=== PATIENT | female | born 1985 | race Caucasian/White ===

== ENCOUNTER 2017-12-14 12:13 | Outpatient (CLI) | END 2017-12-14 14:25 | disposition home or self-care (01) ==

== ENCOUNTER 2017-12-15 13:02 | Outpatient (CLI) | END 2017-12-15 14:20 | disposition home or self-care (01) ==

== ENCOUNTER 2017-12-19 09:27 | Outpatient (CLI) | END 2017-12-19 14:50 | disposition home or self-care (01) ==

== ENCOUNTER 2017-12-21 15:09 | Outpatient (CLI) | END 2017-12-21 16:10 | disposition home or self-care (01) ==

== ENCOUNTER 2017-12-23 09:09 | Outpatient (CLI) | END 2017-12-23 12:04 | disposition home or self-care (01) ==

== ENCOUNTER 2018-01-31 08:47 | Inpatient (IN) | END 2018-02-03 13:00 | disposition home or self-care (01) | DRG 765 ==

== ENCOUNTER 2018-04-21 11:59 | Emergency (ER) | END 2018-04-21 13:20 | disposition home or self-care (01) ==

== ENCOUNTER 2018-04-22 09:30 | Emergency (ER) | END 2018-04-22 12:44 | disposition home or self-care (01) ==

== ENCOUNTER 2018-07-27 14:16 | Emergency (ER) | END 2018-07-27 15:11 | disposition home or self-care (01) ==

== ENCOUNTER 2018-09-22 12:18 | Emergency (ER) | END 2018-09-22 14:56 | disposition home or self-care (01) ==

== ENCOUNTER 2018-10-28 15:21 | Emergency (ER) | payer OTHER ==
[~2018-10-28] VITALS: Wt 90.0 kg
[~2018-10-28 15:21] MED LIST: CEPH-443 PO; IBUP-1544 PO; LORA-441 PO; MECL12.574 PO; METO10TA92 PO; ONDA8TAB14 PO; PRED20TA PO; PREN-39 PO
[2018-10-28 15:28] VITALS: BP 136/89; PULSE 89; RESP 18
[2018-10-28] MEDS ORDERED: IBUP800T48 PO (17:47)
--- NOTE | 2018-10-28 17:50 | ERD ---
ER Documentation Chief Complaint Chief Complaint CWP X 1 WEEK HPI 32-year-old female no past medical history presents to the emergency room with 1 week of right-sided anterior chest wall pain. She states that she has been leaning over the bathtub and pressing on her chest to give her children a bath. Over the timeframe she has had dull pain that is reproducible and worse with movement of her arms and chest wall. No shortness of breath no pleuritic pain no exertional symptoms. Patient was concerned and wanted to be evaluated. She has not taken any Tylenol or Motrin for the pain. ROS All systems reviewed and are negative except as per history of present illness. Medications Home Meds Active Scripts Ibuprofen* (Motrin*) 800 Mg Tab, 800 MG PO Q6H PRN for PAIN AND OR ELEVATED TEMP, #30 TAB Prov:FLORENCIO IVERSON MD 10/28/18 Prednisone* (Prednisone*) 20 Mg Tab, 40 MG PO DAILY for 4 Days, TAB Prov:OLIVIA FINK MD 09/22/18 Metoclopramide* (Reglan*) 10 Mg Tablet, 10 MG PO BID PRN for NAUSEA AND/OR VOMITING, #14 TAB Prov:DON DORSEY MD 07/27/18 Lorazepam* (Ativan*) 0.5 Mg Tablet, 0.5 MG PO BID PRN for dizziness for 7 Days, #14 TAB Prov:DON DORSEY MD 07/27/18 Meclizine Hcl* (Antivert*) 12.5 Mg Tab, 12.5 MG PO Q6H PRN for DIZZINESS, #20 TAB Prov:DON DORSEY MD 07/27/18 Ondansetron (Ondansetron Odt) 8 Mg Tab.rapdis, 8 MG PO Q6H PRN for NAUSEA AND/OR VOMITING, #6 TAB Prov:OLIVIA FINK MD 04/22/18 Cephalexin* (Keflex*) 500 Mg Capsule, 500 MG PO QID for 5 Days, CAP Prov:OLIVIA FINK MD 04/22/18 Meclizine Hcl* (Antivert*) 12.5 Mg Tab, 12.5 MG PO Q6H PRN for DIZZINESS, #20 TA B Prov:DON DORSEY MD 04/21/18 Ibuprofen* (Ibuprofen*) 800 Mg Tablet, 800 MG PO Q8, #60 TAB 0 Refills Prov:MICHEAL MERRITT MD 02/02/18 Reported Medications Vits W-Ca,Fe,Fa(<1MG) ( Vitamins) 1 Tab Tablet, 1 TAB PO 04/29/15 Allergies Allergies: Coded Allergies: No Known Allergy (Unverified , 04/29/15) PMhx/Soc History of Surgery: Yes (csection) Anesthesia Reaction: No Hx Neurological Disorder: No Hx Respiratory Disorders: No Hx Cardiac Disorders: No Hx Psychiatric Problems: No Hx Miscellaneous Medical Probl: No Hx Alcohol Use: Yes Hx Substance Use: No Hx Tobacco Use: No Smoking Status: Never smoker FmHx Family History: No diabetes Physical Exam Vitals Vital Signs Date Temp Pulse Resp B/P (MAP) Pulse Ox O2 O2 Flow FiO2 Time Delivery Rate 10/28/18 98.1 89 18 136/89 99 15:28 (105) Physical Exam General: Well developed, well nourished, no acute distress Head: Normocephalic, atraumatic. Eyes: EOM intact ENT: Moist mucous membranes Neck: Full ROM Respiratory: No respiratory distress, no wheezing or rhonchi, reproducible right-sided anterior chest wall tenderness near the sternal costal margin Cardiovascular: No murmurs rubs gallops Abdominal: Nondistended : Deferred MSK: No edema, no unilateral swelling, 5/5 strength Neurologic: Alert and oriented, moving all extremities, normal speech, steady gait Skin: No rash Psych: Normal mood Procedures/MDM The patient has very reproducible chest wall pain and a good history of repetitive force to the chest wall very consistent with likely costochondritis. No signs or symptoms concerning for pulmonary embolism, dissection, ACS, pneumothorax. I do not believe the patient requires laboratory testing or chest x-ray imaging. The patient has normal vital signs and very good story and very reproducible exam. The patient meets the PERC RULE out criteria. Thus, less than 2% risk of pulmonary embolism with better alternative diagnosis. No indication for d-dimer or CT pulmonary angiogram at this time. EKG: I reviewed and interpreted a 12-lead EKG. Rhythm: Normal sinus rhythm ST Changes: No contiguous ST segment elevations T waves: No contiguous T wave inversions Impression: [No evidence of acute cardiac ischemia] The patient does not have an identifiable emergent medical condition that warrants inpatient hospitalization at this time. The patient is deemed safe for discharge with outpatient follow-up. We discussed follow up with the patient's primary care doctor within 24 to 48 hours as needed. We also discussed return to the emergency room for worsening symptoms or worsening condition. Outpatient referral: [None required] Discharge Medications: Motrin Departure Diagnosis: Primary Impression: Chest wall pain Condition: Good Patient Instructions: Chest Wall Pain, Costochondritis Referrals: [facility] YOU HAVE RECEIVED A MEDICAL SCREENING EXAM AND THE RESULTS INDICATE THAT YOU DO NOT HAVE A CONDITION THAT REQUIRES URGENT TREATMENT IN THE EMERGENCY DEPARTMENT. FURTHER EVALUATION AND TREATMENT OF YOUR CONDITION CAN WAIT UNTIL YOU ARE SEEN IN YOUR DOCTORS OFFICE WITHIN THE NEXT 1-2 DAYS. IT IS YOUR RESPONSIBILITY TO MAKE AN APPOINTMENT FOR FOLOW-UP CARE. IF YOU HAVE A PRIMARY DOCTOR --you should call your primary doctor and schedule an appointment IF YOU DO NOT HAVE A PRIMARY DOCTOR YOU CAN CALL OUR PHYSICIAN REFERRAL HOTLINE AT IF YOU CAN NOT AFFORD TO SEE A PHYSICIAN YOU CAN CHOSE FROM THE FOLLOWING [facility] [address] [facility]. [facility] [address] [facility]. [facility] [address] [facility] [facility] [address] [facility]. [facility] [address] [facility]. [facility]. [address] [facility]. [facility] YOU HAVE RECEIVED A MEDICAL SCREENING EXAM AND THE RESULTS INDICATE THAT YOU DO NOT HAVE A CONDITION THAT REQUIRES URGENT TREATMENT IN THE EMERGENCY DEPARTMENT. FURTHER EVALUATION AND TREATMENT OF YOUR CONDITION CAN WAIT UNTIL YOU ARE SEEN IN YOUR DOCTORS OFFICE WITHIN THE NEXT 1-2 DAYS. IT IS YOUR RESPONSIBILITY TO MAKE AN APPOINTMENT FOR FOLOW-UP CARE. IF YOU HAVE A PRIMARY DOCTOR --you should call your primary doctor and schedule and appointment IF YOU DO NOT HAVE A PRIMARY DOCTOR YOU CAN CALL OUR PHYSICIAN REFERRAL HOTLINE AT . IF YOU CAN NOT AFFORD TO SEE A PHYSICIAN YOU CAN CHOSE FROM THE FOLLOWING [facility] INSTITUTIONS: [facility] [address] [place] [address] [facility] [address] [place] [address] [facility] [address] [place] [address] Additional Instructions: Call your primary care doctor TOMORROW for an appointment during the next 1 WEEK.Tell the waiter/waitress dining car that you were referred from this facility.See the doctor sooner or return here if your condition worsens before your appointment time. FLORENCIO IVERSON MD Oct 28, 2018 17:50
== END 2018-10-28 17:46 | disposition home or self-care (01) ==
LOC: E/R 15:21
DX: R07.89 Other chest pain (principal)
CPT/HCPCS: 93005

== ENCOUNTER 2019-02-07 20:47 | Emergency (ER) | payer OTHER ==
[~2019-02-07] VITALS: Ht 162.6 cm; Wt 106.0 kg
[~2019-02-07 20:47] MED LIST changes: +IBUP800T48 PO
[2019-02-07 21:10] VITALS: BP 143/87; PULSE 60; Ht 162.6 cm; Wt 106.0 kg
[2019-02-07] MEDS ORDERED: BENZ1LOZ52 MM (22:40)
[2019-02-07] MEDS ORDERED: IBUP-1542 PO (22:40)
--- NOTE | 2019-02-07 22:44 | ERD ---
ER Documentation Chief Complaint Chief Complaint sore throat/painful swallowing since yesterday HPI Patient is a 33-year-old female who presents the ER for concerns of throat pain x1 day. She denies any drooling, trismus or hyperextension of her neck. She states pain is localized to left side of her throat. She denies any fevers or chills. Patient has no cough. Patient has no chest pain, shortness of breath, nausea, vomiting or LOC. ROS All systems reviewed and are negative except as per history of present illness. Medications Home Meds Active Scripts Benzocaine/Menthol* (Cepacol* Sore Throat Lozenges) 1 Each Lozenge, 1 EACH MM q2h PRN for SORE THROAT, #14 [place] Prov:BRONSON GIBBONS PA-C 02/07/19 Ibuprofen* (Motrin*) 600 Mg Tab, 600 MG PO Q6, #30 TAB Prov:BRONSON GIBBONS PA-C 02/07/19 Ibuprofen* (Motrin*) 800 Mg Tab, 800 MG PO Q6H PRN for PAIN AND OR ELEVATED TEMP, #30 TAB Prov:FLORENCIO IVERSON MD 10/28/18 Prednisone* (Prednisone*) 20 Mg Tab, 40 MG PO DAILY for 4 Days, TAB Prov:OLIVIA FINK MD 09/22/18 Metoclopramide* (Reglan*) 10 Mg Tablet, 10 MG PO BID PRN for NAUSEA AND/OR VOMITING, #14 TAB Prov:DON DORSEY MD 07/27/18 Lorazepam* (Ativan*) 0.5 Mg Tablet, 0.5 MG PO BID PRN for dizziness for 7 Days, #14 TAB Prov:DON DORSEY MD 07/27/18 Meclizine Hcl* (Antivert*) 12.5 Mg Tab, 12.5 MG PO Q6H PRN for DIZZINESS, #20 TAB Prov:DON DORSEY MD 07/27/18 Ondansetron (Ondansetron Odt) 8 Mg Tab.rapdis, 8 MG PO Q6H PRN for NAUSEA AND/OR VOMITING, #6 TAB Prov:OLIVIA FINK MD 04/22/18 Cephalexin* (Keflex*) 500 Mg Capsule, 500 MG PO QID for 5 Days, CAP Prov:OLIVIA FINK MD 04/22/18 Meclizine Hcl* (Antivert*) 12.5 Mg Tab, 12.5 MG PO Q6H PRN for DIZZINESS, #20 TAB Prov:DON DORSEY MD 04/21/18 Ibuprofen* (Ibuprofen*) 800 Mg Tablet, 800 MG PO Q8, #60 TAB 0 Refills Prov:MICHEAL MERRITT MD 02/02/18 Reported Medications Vits W-Ca,Fe,Fa(<1MG) ( Vitamins) 1 Tab Tablet, 1 TAB PO 04/29/15 Allergies Allergies: Coded Allergies: No Known Allergy (Unverified , 04/29/15) PMhx/Soc Medical and Surgical Hx: pt denies Medical Hx, pt denies Surgical Hx History of Surgery: Yes (csection) Anesthesia Reaction: No Hx Neurological Disorder: No Hx Respiratory Disorders: No Hx Cardiac Disorders: No Hx Psychiatric Problems: No Hx Miscellaneous Medical Probl: No Hx Alcohol Use: Yes Hx Substance Use: Yes Hx Tobacco Use: Yes Smoking Status: Never smoker FmHx Family History: No diabetes Physical Exam Vitals Vital Signs Date Temp Pulse Resp B/P (MAP) Pulse Ox O2 O2 Flow FiO2 Time Delivery Rate 02/07/19 98.6 18 Room Air 22:48 02/07/19 97.3 60 20 143/87 98 21:10 (105) Physical Exam GENERAL: Well-developed, well-nourished female. Appears in no acute distress. HEAD: Normocephalic, atraumatic. No deformities or ecchymosis. EYE: Pupils equal, round, and reactive to light. EOMs intact. No conjunctival erythema. No eye discharge. ENT: External ear without any masses or tenderness. Auditory canals clear bilaterally. TM visualized bilaterally, non-erythematous, non-bulging. Nasal mucosa pink with no discharge. Oropharynx is pink without any tonsillar erythema or exudates. No uvula deviation. No kissing tonsils. NECK: Supple. No meningismus. Normal ROM of the neck. LUNG: Clear to auscultation bilaterally. No rhonchi, wheezing, rales or coarse breath sounds. HEART: Regular rate and rhythm. No murmurs, rubs or gallops. EXTREMITIES: Equal pulses bilaterally. No peripheral clubbing, cyanosis or edema. No unilateral leg swelling. NEUROLOGIC: Alert and oriented to person, place and time. Moving all four extremities. 5/5 strength in all extremities. Normal speech. Steady gait. SKIN: Normal color. Warm and dry. No rashes or lesions. Procedures/MDM MEDICAL DECISION MAKING: This is a 33-year-old female. Vital signs were reviewed. Patient was afebrile. Patient was not hypoxic. The patient does not have trismus, muffled voice, uvula deviation, unilateral tonsillar swelling, or drooling. No signs of neck swelling or hyperextension of the neck noted. At this time, patient likely has viral pharyngitis. Low suspicion for epiglottitis, peritonsillar abscess, retropharyngeal abscess, Ludwigs angina, strep pharyngitis, dental abscess. Patient was nontoxic, [id number] prior to discharge. PRESCRIPTIONS: Ibuprofen, Cepacol lozenges DISCHARGE: At this time, patient is stable for discharge and outpatient management. Supportive therapies such as OTC throat lozenges and warm salt water gurgles were discussed. I have instructed the patient to follow-up with his/her primary care physician in 1-2 days. I have discussed with the patient the possibility of needing to see a specialist for further workup and imaging studies if symptoms persist. I have instructed the patient to promptly return to the ER for any new or worsening symptoms including increased pain, fever, nausea, vomiting, weakness or LOC. The patient and/or family expressed understanding of and agreement with this plan. All questions were answered. Home care instructions were provided. Disclaimer: Inadvertent spelling and grammatical errors are likely due to EHR/dictation software use and do not reflect on the overall quality of patient care. Also, please note that the electronic time recorded on this note does not necessarily reflect the actual time of the patient encounter. Departure Diagnosis: Primary Impression: Pharyngitis Pharyngitis/tonsillitis etiology: unspecified etiology Qualified Codes: J02.9 - Acute pharyngitis, unspecified Condition: Stable Patient Instructions: Pharyngitis, Viral Referrals: [facility] YOU HAVE RECEIVED A MEDICAL SCREENING EXAM AND THE RESULTS INDICATE THAT YOU DO NOT HAVE A CONDITION THAT REQUIRES URGENT TREATMENT IN THE EMERGENCY DEPARTMENT. FURTHER EVALUATION AND TREATMENT OF YOUR CONDITION CAN WAIT UNTIL YOU ARE SEEN IN YOUR DOCTORS OFFICE WITHIN THE NEXT 1-2 DAYS. IT IS YOUR RESPONSIBILITY TO MAKE AN APPOINTMENT FOR FOLOW-UP CARE. IF YOU HAVE A PRIMARY DOCTOR --you should call your primary doctor and schedule an appointment IF YOU DO NOT HAVE A PRIMARY DOCTOR YOU CAN CALL OUR PHYSICIAN REFERRAL HOTLINE AT IF YOU CAN NOT AFFORD TO SEE A PHYSICIAN YOU CAN CHOSE FROM THE FOLLOWING [facility] [address] [facility] [address] [facility] [address] [facility] [address] [facility] [address] [facility]. [facility] [address] [facility]. [facility] YOU HAVE RECEIVED A MEDICAL SCREENING EXAM AND THE RESULTS INDICATE THAT YOU DO NOT HAVE A CONDITION THAT REQUIRES URGENT TREATMENT IN THE EMERGENCY DEPARTMENT. FURTHER EVALUATION AND TREATMENT OF YOUR CONDITION CAN WAIT UNTIL YOU ARE SEEN IN YOUR DOCTORS OFFICE WITHIN THE NEXT 1-2 DAYS. IT IS YOUR RESPONSIBILITY TO MAKE AN APPOINTMENT FOR FOLOW-UP CARE. IF YOU HAVE A PRIMARY DOCTOR --you should call your primary doctor and schedule and appointment IF YOU DO NOT HAVE A PRIMARY DOCTOR YOU CAN CALL OUR PHYSICIAN REFERRAL HOTLINE AT . IF YOU CAN NOT AFFORD TO SEE A PHYSICIAN YOU CAN CHOSE FROM THE FOLLOWING [facility]: [facility] [address] [place] [address] [facility] [address] [place] [address] [facility] [address] [place] [address] Additional Instructions: Call your primary care doctor TOMORROW for an appointment during the next 1-2 days.See the doctor sooner or return here if your condition worsens before your appointment time. BRONSON GIBBONS PA-C February 07, 2019 22:44
[2019-02-07 22:48] VITALS: RESP 18
== END 2019-02-07 22:49 | disposition home or self-care (01) ==
LOC: FTE 20:47
DX: J02.9 Acute pharyngitis, unspecified (principal)
CPT/HCPCS: 99282